=== PATIENT | female | born 1950 | race African-American/Black ===

== ENCOUNTER 2019-05-05 17:53 | Emergency (ER) | payer MEDICARE, MEDICAID ==
[~2019-05-05] VITALS: Ht 167.6 cm; Wt 91.0 kg
[2019-05-05] MEDS ORDERED: DEXTROSE 50% WATER 50ML SYRINGE IV ONE (19:24)
[2019-05-05 21:11] VITALS: BP 185/62
[2019-05-05] MEDS ORDERED: ACETAMINOPHEN 325MG TABLET PO ONE (21:45)
== END 2019-05-05 22:26 | disposition home or self-care (01) ==
LOC: ER 18:16
DX: T38.3X1A Poisoning by insulin and oral hypoglycemic [antidiabetic] drugs, accidental (unintentional), initial encounter (principal); Y92.9 Unspecified place or not applicable; E11.9 Type 2 diabetes mellitus without complications; I10 Essential (primary) hypertension; Z79.4 Long term (current) use of insulin; Z88.0 Allergy status to penicillin; Z88.3 Allergy status to other anti-infective agents; Z88.8 Allergy status to other drugs, medicaments and biological substances; Z86.73 Personal history of transient ischemic attack (TIA), and cerebral infarction without residual deficits
CPT/HCPCS: 36415; 82947; 82962; 99283

== ENCOUNTER 2019-08-24 18:17 | Emergency (ER) | payer MEDICARE, MEDICAID ==
[~2019-08-24] VITALS: Ht 162.6 cm; Wt 114.0 kg
[2019-08-24] MEDS ORDERED: KETOROLAC 30MG/ML VIAL IM ONE (19:30)
[2019-08-24] MEDS ORDERED: MORPHINE SULFATE 15MG TABLET SR PO ONE (19:30)
[2019-08-24] MEDS ORDERED: DIATR MEGLU/DIATRIZOATE SOLN 30ML ONE (19:37)
[2019-08-24 22:25] VITALS: BP 158/88
== END 2019-08-24 22:25 | disposition home or self-care (01) ==
LOC: ER 18:17
DX: S39.012A Strain of muscle, fascia and tendon of lower back, initial encounter (principal); M54.42 Lumbago with sciatica, left side; E11.9 Type 2 diabetes mellitus without complications; I10 Essential (primary) hypertension; Z88.0 Allergy status to penicillin; Z88.1 Allergy status to other antibiotic agents; X58.XXXA Exposure to other specified factors, initial encounter; Y93.89 Activity, other specified; Y92.89 Other specified places as the place of occurrence of the external cause; Y99.8 Other external cause status
CPT/HCPCS: 74176; 96372; 99284; J1885; Q9963